=== PATIENT | male | born 1965 | race Caucasian/White ===

== ENCOUNTER → 2016-12-24 | Outpatient (CLI) | payer OTHER | LOC: LAB.O 10:27 | PROVIDERS: ATTEND Psychiatry & Neurology Psychiatry | DX: Z51.81 Encounter for therapeutic drug level monitoring (principal) ==

== ENCOUNTER → 2017-01-14 | Outpatient (CLI) | payer OTHER | END | disposition home or self-care (01) | LOC: LAB.O 12:22 | PROVIDERS: ATTEND Nurse Practitioner Family | DX: K59.00 Constipation, unspecified (principal); K74.60 Unspecified cirrhosis of liver; I50.9 Heart failure, unspecified; E72.20 Disorder of urea cycle metabolism, unspecified; R39.15 Urgency of urination ==

== ENCOUNTER → 2017-05-16 | Outpatient (CLI) | payer MEDICARE ==
--- NOTE | 2017-05-18 12:02 | RAD ---
EXAM DESCRIPTION: Shoulder,Left 2 or More Views CLINICAL HISTORY: 51 years, Male, LEFT SHOULDER PAIN COMPARISON: None. FINDINGS: No fracture or dislocation. Mild acromioclavicular degenerative change IMPRESSION: No fracture or dislocation. Mild degenerative change Electronically signed by: Luis Enrique Lujan MD 05/18/2017 12:00 PM CDT
== END | disposition home or self-care (01) ==
LOC: RAD 12:16
PROVIDERS: ATTEND Nurse Practitioner Family
DX: M25.512 Pain in left shoulder (principal)

== ENCOUNTER → 2017-05-19 | Outpatient (CLI) | payer MEDICARE | END | disposition home or self-care (01) | LOC: YCFC.O 13:02 | PROVIDERS: ATTEND Nurse Practitioner Family | DX: R31.9 Hematuria, unspecified (principal); K62.9 Disease of anus and rectum, unspecified; R10.9 Unspecified abdominal pain ==

== ENCOUNTER → 2017-09-15 | Outpatient (CLI) | payer MEDICARE | END | disposition home or self-care (01) | LOC: YCFC.O 08:56 | PROVIDERS: ATTEND Anesthesiology Pain Medicine | DX: Z79.891 Long term (current) use of opiate analgesic (principal) ==

== ENCOUNTER 2017-09-19 19:53 | Emergency (ER) | payer MEDICARE ==
--- NOTE | 2017-09-19 20:11 | ED.PDOC ---
History of Present Illness - General Chief Complaint: General Stated Complaint: left arm pain Time Seen by Provider: 09/19/17 20:07 Source: patient - History of Present Illness Initial Comments: Riki Whittington 51 y/o male stated that he had been having dull pain on his left arm for the last one month after he fell on his left arm and seen his md took an x -ray on his left arm no fracture noted and was advised to do stretching exercises which he is still doing stating no improvement. Occurred: other - one month Pain - Upper Extremity: moderate: Upper arm, left Method of Injury: fell - one month ago Improving Factors: rest Worsening Factors: movement Allergies/Adverse Reactions: Allergies Penicillin G Allergy (Verified 08/19/16 18:16) Anaphylaxis mushrooms Allergy (Severe, Uncoded 08/19/16 18:16) Anaphylaxis Home Medications: Ambulatory Orders Furosemide [Lasix] 20 mg PO DAILY 01/11/15 Hydroxyzine Pamoate [Vistaril] 100 mg PO BID PRN 01/11/15 Lisinopril & Hydrochlorothiazi [Lisinopril/Hctz 10-12.5 mg] 1 tab PO DAILY 01/11 Potassium Chloride Tab [Micro-K] 10 meq PO DAILY 01/11/15 Pravastatin Sodium 40 mg PO BEDTIME 01/11/15 Baclofen 40 mg PO BID 06/14/16 Pregabalin [Lyrica] 200 mg PO BID 06/14/16 Spironolactone 25 mg PO DAILY 06/29/16 Acetaminophen W/ Codeine [Tylenol w/Codeine 300-30 mg] 1 - 2 tab PO Q6HR PRN # 30 tab 08/19/16 Lactulose 10 gm PO DAILY 08/19/16 Acetaminophen W/ Codeine [Tylenol W/ CODEINE #3] 1 ea PO Q6H PRN #20 11/04/16 Methocarbamol 500 mg PO QID PRN #84 tab 11/04/16 Naproxen [Naprosyn] 500 mg PO BID PRN #30 tab 11/04/16 Carbamazepine [Tegretol-Xr] 400 mg PO DAILY 11/09/16 Furosemide Tab [Lasix Tab] 40 mg PO DAILY PRN #10 tab 11/09/16 Review of Systems - Review of Systems Constitutional: States: no symptoms reported EENTM: States: no symptoms reported Respiratory: States: no symptoms reported Cardiology: States: no symptoms reported Musculoskeletal: States: see HPI Past Medical History (General) - Patient Medical History Hx Seizures: Yes Hx Stroke: Yes - HX TIA Hx Dementia: No Hx Asthma: No Hx of COPD: Yes Hx Cardiac Disorders: Yes - [place] Hx Congestive Heart Failure: No Hx Pacemaker: No Hx Hypertension: Yes Hx Thyroid Disease: No Hx Diabetes: Yes Hx Gastroesophageal Reflux: No Hx Renal Disease: No Hx Cancer: No Hx Hepatitis C: No Hx MRSA: Yes Hx Other PMH: Yes - cerebral palsy MRSA Source:: Wound Surgical History: no surgical history - Vaccination History Hx Tetanus, Diphtheria Vaccination: No Hx Influenza Vaccination: No Hx Pneumococcal Vaccination: No - Social History Hx Tobacco Use: Yes Hx Chewing Tobacco Use: Yes Hx Alcohol Use: Yes Hx Substance Use: No Hx Substance Use Treatment: No Hx Depression: Yes Hx Physical Abuse: No Hx Emotional Abuse: No Family Medical History - Family History Father Family History: Unknown Living Status: Unknown Physical Exam - Physical Exam General Appearance: Alert, No apparent distress Eyes, Ears, Nose, Throat Exam: normal ENT inspection, pharynx normal Neck: non-tender, supple Cardiovascular/Respiratory: regular rate, rhythm, no M/R/G, normal peripheral pulses, normal breath sounds Abdominal Exam: non-tender, no organomegaly Back Exam: no vertebral tenderness Shoulder Exam: non-tender, limited ROM - on flexion and rotations Elbow/Forearm Exam: no evidence of injury Wrist Exam: no evidence of injury Hand Exam: no evidence of injury Neuro/Tendon: normal sensation, normal motor functions Mental Status: alert, oriented x 3 Skin Exam: normal color, warm/dry, other - old ecchymosis left arm Progress - EKG/XRAY/CT EKG: Sinus Comments: heart rate-88 Departure - Departure Clinical Impression: Chronic left shoulder pain Rotator cuff disorder Qualifiers: Laterality: left Qualified Code(s): M67.912 - Unspecified disorder of synovium and tendon, left shoulder Time of Disposition: 21:31 Disposition: Discharge to Home or Self Care Condition: Good Departure Forms: ED Discharge - Pt. Copy, Patient Portal Self Enrollment Instructions: Shoulder Tendinopathy, DI for Rotator Cuff Injury, Rotator Cuff Injury Referrals: Stephanie Perry NP [Primary Care Provider] - 1-2 Weeks Home Medications: Ambulatory Orders Furosemide [Lasix] 20 mg PO DAILY 01/11/15 Hydroxyzine Pamoate [Vistaril] 100 mg PO BID PRN 01/11/15 Lisinopril & Hydrochlorothiazi [Lisinopril/Hctz 10-12.5 mg] 1 tab PO DAILY 01/11 Potassium Chloride Tab [Micro-K] 10 meq PO DAILY 01/11/15 Pravastatin Sodium 40 mg PO BEDTIME 01/11/15 Baclofen 40 mg PO BID 06/14/16 Pregabalin [Lyrica] 200 mg PO BID 06/14/16 Spironolactone 25 mg PO DAILY 06/29/16 Acetaminophen W/ Codeine [Tylenol w/Codeine 300-30 mg] 1 - 2 tab PO Q6HR PRN # 30 tab 08/19/16 Lactulose 10 gm PO DAILY 08/19/16 Acetaminophen W/ Codeine [Tylenol W/ CODEINE #3] 1 ea PO Q6H PRN #20 11/04/16 Methocarbamol 500 mg PO QID PRN #84 tab 11/04/16 Naproxen [Naprosyn] 500 mg PO BID PRN #30 tab 11/04/16 Carbamazepine [Tegretol-Xr] 400 mg PO DAILY 11/09/16 Furosemide Tab [Lasix Tab] 40 mg PO DAILY PRN #10 tab 11/09/16 Additional Instructions: Continue with current medications and shoulder exercises;Follow up with primary md for referral to orthopedist
[2017-09-19 20:33] VITALS: TEMP 98.3; O2SAT 96
[2017-09-19 21:40] VITALS: BP 124/86
== END 2017-09-19 21:40 | disposition home or self-care (01) ==
LOC: ER 19:53
DX: M67.912 Unspecified disorder of synovium and tendon, left shoulder (principal); I25.2 Old myocardial infarction; J44.9 Chronic obstructive pulmonary disease, unspecified; I10 Essential (primary) hypertension; E11.9 Type 2 diabetes mellitus without complications; G80.9 Cerebral palsy, unspecified; Z79.899 Other long term (current) drug therapy; Z88.0 Allergy status to penicillin; Z87.891 Personal history of nicotine dependence

== ENCOUNTER 2017-11-14 19:35 | Emergency (ER) | payer MEDICARE ==
--- NOTE | 2017-11-14 20:47 | ED.PDOC ---
History of Present Illness - General Chief Complaint: Neuro Symptoms/Deficits Stated Complaint: Fall from passing out Time Seen by Provider: 11/14/17 20:08 Source: family Exam Limitations: clinical condition - History of Present Illness Initial Comments: HE IS BROUGHT TO THE ED WITH AMS. FOUND ON THE FLOOR UNKNOWN TIME. THE PATIENT IS CONFUSED BUT RESPONDS TO VERBAL STIMULI Timing/Duration: unsure Severity: moderate Improving Factors: nothing Worsening Factors: nothing Associated Symptoms: denies symptoms Allergies/Adverse Reactions: Allergies Penicillin G Allergy (Verified 11/14/17 19:50) Anaphylaxis mushrooms Allergy (Severe, Uncoded 08/19/16 18:16) Anaphylaxis Home Medications: Ambulatory Orders Furosemide [Lasix] 20 mg PO DAILY 01/11/15 Hydroxyzine Pamoate [Vistaril] 100 mg PO BID PRN 01/11/15 Lisinopril & Hydrochlorothiazi [Lisinopril/Hctz 10-12.5 mg] 1 tab PO DAILY 01/11 Potassium Chloride Tab [Micro-K] 10 meq PO DAILY 01/11/15 Pravastatin Sodium 40 mg PO BEDTIME 01/11/15 Baclofen 40 mg PO BID 06/14/16 Pregabalin [Lyrica] 200 mg PO BID 06/14/16 Spironolactone 25 mg PO DAILY 06/29/16 Acetaminophen W/ Codeine [Tylenol w/Codeine 300-30 mg] 1 - 2 tab PO Q6HR PRN # 30 tab 08/19/16 Lactulose 10 gm PO DAILY 08/19/16 Acetaminophen W/ Codeine [Tylenol W/ CODEINE #3] 1 ea PO Q6H PRN #20 11/04/16 Methocarbamol 500 mg PO QID PRN #84 tab 11/04/16 Naproxen [Naprosyn] 500 mg PO BID PRN #30 tab 11/04/16 Carbamazepine [Tegretol-Xr] 400 mg PO DAILY 11/09/16 Furosemide Tab [Lasix Tab] 40 mg PO DAILY PRN #10 tab 11/09/16 Lisinopril & Hydrochlorothiazi [Zestoretic 20-25 mg] 1 tab PO 11/14/17 [place] Carbonate 300 mg PO BID 11/14/17 Propranolol HCl 10 mg PO DAILY 11/14/17 Review of Systems - Review of Systems Constitutional: States: no symptoms reported EENTM: States: no symptoms reported Respiratory: States: no symptoms reported Cardiology: States: no symptoms reported Gastrointestinal/Abdominal: States: no symptoms reported Genitourinary: States: no symptoms reported Musculoskeletal: States: no symptoms reported Skin: States: no symptoms reported Neurological: States: depressed Endocrine: States: no symptoms reported Hematologic/Lymphatic: States: no symptoms reported All other Systems: Reviewed and Negative Past Medical History (General) - Patient Medical History Hx Seizures: No Hx Stroke: No Hx Dementia: No Hx Asthma: No Hx of COPD: No Hx Cardiac Disorders: No Hx Congestive Heart Failure: No Hx Pacemaker: No Hx Hypertension: Yes Hx Thyroid Disease: No Hx Diabetes: Yes Hx Gastroesophageal Reflux: No Hx Renal Disease: No Hx Cancer: No Hx of HIV: No Hx Hepatitis C: No Hx MRSA: No MRSA Source:: Wound Surgical History: other - Vaccination History Hx Tetanus, Diphtheria Vaccination: No Hx Influenza Vaccination: No Hx Pneumococcal Vaccination: No - Social History Hx Tobacco Use: Yes Hx Chewing Tobacco Use: Yes Hx Alcohol Use: No Hx Substance Use: No Hx Substance Use Treatment: No Hx Depression: No Hx Physical Abuse: No Hx Emotional Abuse: No - Triage Comment ED Triage Comment: Presents to [facility] via [facility] home--states woke up and fell to floor and could not get up and called 911. AMS noted--FSBS 103-- VS WNL--Pt is slow to answer questions from staff-- Pupils 2mm bilat and responds to light.-- Comes with NS KVO to Lt AC per EMS PLANT OPERATIONS COORDINATOR to ER with healthy site noted. Abrasion to forehead noted and dry blood noted to mouth and nose. Family Medical History - Family History Father Family History: Unknown Living Status: Unknown Physical Exam - Physical Exam General Appearance: Anxious, Lethargic, Obese Eye Exam: right abnormal pupil - [place] Ears, Nose, Throat: hearing grossly normal Neck: non-tender, full range of motion, normal inspection Respiratory: lungs clear, normal breath sounds, no respiratory distress, no accessory muscle use Cardiovascular/Chest: normal peripheral pulses, regular rate, rhythm, no edema, no gallop, no JVD, no murmur Peripheral Pulses: radial,right: 2+, radial,left: 2+ Gastrointestinal/Abdominal: normal bowel sounds, non tender, soft, no organomegaly, no pulsatile mass Rectal Exam: deferred Extremity: normal range of motion, non-tender, normal inspection, no pedal edema Neurologic: depressed affect Skin Exam: normal color Lymphatic: no adenopathy Progress - Results/Orders Results/Orders: THE LABORATORY AND IMAGING IS REPORTED: CBC WITH AN ELEVATED WBC OF 19,000 WITH A SHIFT. THE CREATININE OS 1.9, ABG'S WITH A PO2 OF 71 MM/HG AT ROOM AIR. THE UA IS CLEAR. LACTATE IS 1.2, CXR IS REPORTED HAVING A LUCENCY ON THE LEFT HILAR REGION, CT BRAIN IS NEGATIVE FOR ACUTE PROCESS. I HAVE SPOKEN TO DR. MATHIS FROM [facility] AND HE WILL ACCEPT THE PATIENT. - EKG/XRAY/CT CT Ordered: Yes Departure - Departure Clinical Impression: Altered mental status Qualifiers: Altered mental status type: somnolence Qualified Code(s): R40.0 - Somnolence Time of Disposition: 22:33 Disposition: Transfer to Hospital Condition: Fair Departure Forms: ED Discharge - Pt. Copy, Patient Portal Self Enrollment Referrals: Stephanie Perry, [employer] RENT[employer] SERVICE ATTENDANT [Primary Care Provider] - 1-2 Weeks Home Medications: Ambulatory Orders Furosemide [Lasix] 20 mg PO DAILY 01/11/15 Hydroxyzine Pamoate [Vistaril] 100 mg PO BID PRN 01/11/15 Lisinopril & Hydrochlorothiazi [Lisinopril/Hctz 10-12.5 mg] 1 tab PO DAILY 01/11 Potassium Chloride Tab [Micro-K] 10 meq PO DAILY 01/11/15 Pravastatin Sodium 40 mg PO BEDTIME 01/11/15 Baclofen 40 mg PO BID 06/14/16 Pregabalin [Lyrica] 200 mg PO BID 06/14/16 Spironolactone 25 mg PO DAILY 06/29/16 Acetaminophen W/ Codeine [Tylenol w/Codeine 300-30 mg] 1 - 2 tab PO Q6HR PRN # 30 tab 08/19/16 Lactulose 10 gm PO DAILY 08/19/16 Acetaminophen W/ Codeine [Tylenol W/ CODEINE #3] 1 ea PO Q6H PRN #20 11/04/16 Methocarbamol 500 mg PO QID PRN #84 tab 11/04/16 Naproxen [Naprosyn] 500 mg PO BID PRN #30 tab 11/04/16 Carbamazepine [Tegretol-Xr] 400 mg PO DAILY 11/09/16 Furosemide Tab [Lasix Tab] 40 mg PO DAILY PRN #10 tab 11/09/16 Lisinopril & Hydrochlorothiazi [Zestoretic 20-25 mg] 1 tab PO 11/14/17 [place] Carbonate 300 mg PO BID 11/14/17 Propranolol HCl 10 mg PO DAILY 11/14/17 Transfer to Outside Facility - Transfer Information Accepting Facility: [facility] Reason for Transfer: HIGHER LEVEL OF CARE
--- NOTE | 2017-11-14 20:47 | CT ---
EXAM DATE: 11/14/2017 7:49 PM [facility]. PROCEDURE: CT HEAD WITHOUT IV CONTRAST. INDICATION: altered mental status. COMPARISON: 06/18/2016. TECHNIQUE: Axial CT images of the head were acquired without intravenous contrast. This exam was performed according to our departmental dose-optimization program which includes use of Automated Exposure Control, adjustment of the mA and/or kV according to patient size and/or use of iterative reconstruction technique. FINDINGS: No acute intracranial hemorrhage. Gran[place] white matter differentiation is preserved. No mass effect or midline shift. No hydrocephalus. Unremarkable orbits. Moderate mucosal thickening scattered throughout the paranasal sinuses. Mastoid air cells are clear. Intact calvarium. IMPRESSION: No acute intracranial abnormality. Paranasal sinus disease. Electronically signed by: Damon Jacobsen MD 11/14/2017 8:46 PM [facility]
--- NOTE | 2017-11-14 21:28 | RAD ---
Examination: XR CHEST 1 VIEW dated 11/14/2017 8:40 PM [employer] History: sob Comparison: 11/09/2026 Technique: Frontal view of the chest Findings: Exam is mildly hypoventilatory. The lungs are clear bilaterally. No pneumothorax or pleural effusion. There is an oval lucency in the region of the left hilum. The cardiac silhouette is unremarkable. Impression: Oval lucency in the region of the left hilum of unclear etiology. Consider lateral chest radiograph for further evaluation. Lungs otherwise clear. Electronically signed by: Damon Jacobsen MD 11/14/2017 9:26 PM [employer]
[2017-11-14 22:46] VITALS: BP 130/59; O2SAT 99
[2017-11-14 23:00] VITALS: TEMP 98.3
== END 2017-11-14 23:00 | disposition short-term general hospital (02) ==
LOC: ER 19:35
DX: R41.82 Altered mental status, unspecified (principal); R40.0 Somnolence; E11.9 Type 2 diabetes mellitus without complications; I10 Essential (primary) hypertension; Z72.0 Tobacco use; Z79.899 Other long term (current) drug therapy; Z88.0 Allergy status to penicillin

== ENCOUNTER → 2018-01-06 | Outpatient (CLI) | payer MEDICARE | LOC: YCFC.O 10:43 | DX: E78.5 Hyperlipidemia, unspecified (principal); I10 Essential (primary) hypertension; K74.60 Unspecified cirrhosis of liver ==

== ENCOUNTER → 2018-02-06 | Outpatient (CLI) | payer MEDICARE | LOC: GRHH 15:37 | DX: E11.65 Type 2 diabetes mellitus with hyperglycemia (principal); I10 Essential (primary) hypertension ==

== ENCOUNTER → 2018-02-18 | Outpatient (CLI) | payer MEDICARE | LOC: GRHH 09:52 | DX: E55.9 Vitamin D deficiency, unspecified (principal); D51.9 Vitamin B12 deficiency anemia, unspecified; I10 Essential (primary) hypertension; D52.9 Folate deficiency anemia, unspecified; Z51.81 Encounter for therapeutic drug level monitoring; Z79.899 Other long term (current) drug therapy; Z13.29 Encounter for screening for other suspected endocrine disorder ==

== ENCOUNTER → 2018-11-03 | Outpatient (CLI) | payer MEDICARE | LOC: YCFC.O 12:36 | PROVIDERS: ATTEND Family Medicine | DX: E11.9 Type 2 diabetes mellitus without complications (principal); I10 Essential (primary) hypertension; K74.60 Unspecified cirrhosis of liver; E78.5 Hyperlipidemia, unspecified; R35.1 Nocturia ==

== ENCOUNTER → 2019-02-04 | Outpatient (CLI) | payer MEDICARE | LOC: NC 12:57 | PROVIDERS: ATTEND Family Medicine | DX: E11.9 Type 2 diabetes mellitus without complications (principal); I11.0 Hypertensive heart disease with heart failure; I50.9 Heart failure, unspecified ==

== ENCOUNTER → 2019-02-09 | Outpatient (CLI) | payer MEDICARE | LOC: LAB.O 09:33 | PROVIDERS: ATTEND Family Medicine | DX: R74.8 Abnormal levels of other serum enzymes (principal) ==

== ENCOUNTER → 2019-04-28 | Outpatient (CLI) | payer MEDICARE | LOC: NC 11:13 | PROVIDERS: ATTEND Family Medicine | DX: E11.9 Type 2 diabetes mellitus without complications (principal); I11.0 Hypertensive heart disease with heart failure ==

== ENCOUNTER → 2019-05-10 | Outpatient (CLI) | payer MEDICARE | LOC: LAB.O 08:53 | PROVIDERS: ATTEND Family Medicine | DX: E78.5 Hyperlipidemia, unspecified (principal); D64.9 Anemia, unspecified; D51.9 Vitamin B12 deficiency anemia, unspecified; D52.9 Folate deficiency anemia, unspecified ==

== ENCOUNTER → 2019-06-02 | Outpatient (CLI) | payer MEDICARE | LOC: LAB.O 10:44 | PROVIDERS: ATTEND Internal Medicine Gastroenterology | DX: R74.0 Nonspecific elevation of levels of transaminase and lactic acid dehydrogenase [LDH] (principal); K74.0 Hepatic fibrosis; R74.8 Abnormal levels of other serum enzymes; R94.5 Abnormal results of liver function studies; F10.10 Alcohol abuse, uncomplicated; Z72.89 Other problems related to lifestyle ==

== ENCOUNTER 2019-07-03 09:56 | Emergency (ER) | payer MEDICARE ==
[2019-07-03 10:09] VITALS: TEMP 97.5
[2019-07-03] MEDS ORDERED: LIDOCAINE 1% 10 ML VIAL INJ ONE (10:14)
[2019-07-03] MEDS ORDERED: CHLORHEXIDINE GLUCONATE 4 % 15 ML UD TOP ONE (10:15)
[2019-07-03] MEDS ORDERED: CEPHALEXIN MONOHYDRATE 250 MG CAP PO ONE (10:40)
--- NOTE | 2019-07-03 10:43 | ED.PDOC ---
History of Present Illness - General Chief Complaint: Laceration Stated Complaint: laceration to RH Time Seen by Provider: 07/03/19 10:15 Source: patient Exam Limitations: no limitations - History of Present Illness Initial Comments: Patient presents with a laceration to his right hand that he got while using his pocket knife. He says that it slipped and sliced his hand as it was falling. He has NIDDM and says that he had neuropathy in the right hand. He says that he is not feeling any pain because of that. No other injuries nor complaints. Timing/Duration: 1-3 hours Severity: mild Improving Factors: nothing Worsening Factors: nothing Associated Symptoms: denies symptoms Allergies/Adverse Reactions: Allergies Penicillin G Allergy (Verified 11/14/17 19:50) Anaphylaxis mushrooms Allergy (Severe, Uncoded 08/19/16 18:16) Anaphylaxis Home Medications: Ambulatory Orders Pravastatin Sodium 40 mg PO BEDTIME 01/11/15 Propranolol HCl [Propranolol Hydrochloride] 10 mg PO DAILY 11/14/17 Cyanocobalamin [B12] 1,000 mcg PO DAILY 01/24/19 Divalproex Sodium [Divalproex Sodium ER] 1,000 mg PO BID 01/24/19 Duloxetine HCl 30 mg PO DAILY 01/24/19 Lisinopril 20 mg PO DAILY #30 tab 01/24/19 Lisinopril & Hydrochlorothiazi [Lisinopril/Hctz 20-25 mg] 1 tab PO DAILY 01/24/19 Metformin HCl [Metformin Hydrochloride] 1,000 mg PO BID 01/24/19 Potassium Chloride [Potassium Chloride ER] 20 meq PO DAILY 01/24/19 Pregabalin [Lyrica] 75 mg PO BID 01/24/19 Cephalexin Monohydrate [Keflex] 500 mg PO Q12HRS #13 cap 07/03/19 Review of Systems - Review of Systems Constitutional: States: no symptoms reported EENTM: States: no symptoms reported Respiratory: States: no symptoms reported Cardiology: States: no symptoms reported Gastrointestinal/Abdominal: States: no symptoms reported Genitourinary: States: no symptoms reported Musculoskeletal: States: no symptoms reported Skin: States: see HPI Neurological: States: no symptoms reported Endocrine: States: no symptoms reported Hematologic/Lymphatic: States: no symptoms reported Past Medical History (General) - Patient Medical History Hx Seizures: No Hx Stroke: No Hx Dementia: No Hx Asthma: No Hx of COPD: No Hx Cardiac Disorders: No Hx Congestive Heart Failure: No Hx Pacemaker: No Hx Hypertension: Yes Hx Thyroid Disease: No Hx Diabetes: Yes Hx Gastroesophageal Reflux: No Hx Renal Disease: No Hx Cancer: No Hx of HIV: No Hx Hepatitis C: No Hx MRSA: No MRSA Source:: Wound - Vaccination History Hx Tetanus, Diphtheria Vaccination: No Hx Influenza Vaccination: No Hx Pneumococcal Vaccination: No - Social History Hx Tobacco Use: Yes Hx Chewing Tobacco Use: Yes Hx Alcohol Use: No Hx Substance Use: No Hx Substance Use Treatment: No Hx Depression: No Hx Physical Abuse: No Hx Emotional Abuse: No Family Medical History - Family History Father Family History: Unknown Living Status: Unknown Physical Exam - Physical Exam General Appearance: Alert Respiratory: lungs clear, normal breath sounds Cardiovascular/Chest: normal peripheral pulses, regular rate, rhythm Extremity: other - Patient has 5/5 AROM in all fingers of the right hand as well as the wrist. Decreased sensation throughout the entire hand secondary to diabetic neuropathy. Capillary refill less than 2 seconds at right fingernail beds. Neurologic: no motor/sensory deficits Skin Exam: other - 2 cm transverse laceration on the posterolateral right hand just proximal to the MIP joint of the 1st digit. Hemostatic. Progress - Progress Progress: 07/03/19 10:47 Laceration site was prepped and draped in a sterile fashion. 3 cc of lidocaine without epinephrine was injected into the wound site and excellent local anesthesia achieved. Wound irrigated with 60 cc sterile NS. 4 interrupted sutures using 3-0 Proline were used to gain excellent wound edge opposition. Reinforced with Dermabond. Area was clean, dry, and hemostatic upon completion. Patient tolerated procedure well. Patient is at a higher risk for wound infection due to the diabetes and neuropathy so he was given Keflex 500 mg po in the E.D. and RX for 7 days. Care instructions given. E.R. warnings given. Questions were elicited and answered. Patient voiced understanding and agreement with the plan. Departure - Departure Clinical Impression: Laceration Disposition: Discharge to Home or Self Care Condition: Good Departure Forms: ED Discharge - Pt. Copy, Patient Portal Self Enrollment Instructions: DI for Laceration Repair, DI for Laceration Repair -- Simple Diet: resume usual diet Activity: other - no lifting more than 5 pounds with the right hand until the sutures are taken out Referrals: Herman Layne MD [Primary Care Provider] - 1-2 Weeks Prescriptions: Cephalexin Monohydrate [Keflex] 500 mg PO Q12HRS #13 cap Home Medications: Ambulatory Orders Pravastatin Sodium 40 mg PO BEDTIME 01/11/15 Propranolol HCl [Propranolol Hydrochloride] 10 mg PO DAILY 11/14/17 Cyanocobalamin [B12] 1,000 mcg PO DAILY 01/24/19 Divalproex Sodium [Divalproex Sodium ER] 1,000 mg PO BID 01/24/19 Duloxetine HCl 30 mg PO DAILY 01/24/19 Lisinopril 20 mg PO DAILY #30 tab 01/24/19 Lisinopril & Hydrochlorothiazi [Lisinopril/Hctz 20-25 mg] 1 tab PO DAILY 01/24/19 Metformin HCl [Metformin Hydrochloride] 1,000 mg PO BID 01/24/19 Potassium Chloride [Potassium Chloride ER] 20 meq PO DAILY 01/24/19 Pregabalin [Lyrica] 75 mg PO BID 01/24/19 Cephalexin Monohydrate [Keflex] 500 mg PO Q12HRS #13 cap 07/03/19 Additional Instructions: Keep the wound site clean. Apply topical Neosporin to the laceration twice per day until healed. Take the antibiotic medication as prescribed. Return to the E.R. or your regular doctor in 10 days for suture removal. Return to the E.R. for increased redness around the wound, pain, pus, or temperature above 100.3.
[2019-07-03 11:04] VITALS: BP 126/90; O2SAT 96
== END 2019-07-03 11:00 | disposition home or self-care (01) ==
LOC: ER 09:56
DX: S61.411A Laceration without foreign body of right hand, initial encounter (principal); E11.42 Type 2 diabetes mellitus with diabetic polyneuropathy; I10 Essential (primary) hypertension; W26.0XXA Contact with knife, initial encounter; Z88.0 Allergy status to penicillin; Z79.899 Other long term (current) drug therapy; Z79.84 Long term (current) use of oral hypoglycemic drugs; Z87.891 Personal history of nicotine dependence; Y92.9 Unspecified place or not applicable

== ENCOUNTER → 2019-07-15 | Outpatient (CLI) | payer MEDICARE | LOC: YCFC.O 15:51 | PROVIDERS: ATTEND Nurse Practitioner | DX: L08.9 Local infection of the skin and subcutaneous tissue, unspecified (principal) ==

== ENCOUNTER → 2019-07-19 | Outpatient (CLI) | payer MEDICARE | LOC: LAB.O 08:40 | PROVIDERS: ATTEND Family Medicine | DX: I10 Essential (primary) hypertension (principal); E11.9 Type 2 diabetes mellitus without complications; E78.5 Hyperlipidemia, unspecified ==

== ENCOUNTER → 2020-03-08 | Outpatient (CLI) | payer MEDICARE | LOC: YCFC.O 09:23 | PROVIDERS: ATTEND Family Medicine | DX: E11.9 Type 2 diabetes mellitus without complications (principal); Z12.5 Encounter for screening for malignant neoplasm of prostate; M25.569 Pain in unspecified knee; I10 Essential (primary) hypertension; E78.5 Hyperlipidemia, unspecified; R53.83 Other fatigue | CPT/HCPCS: 36415; 80061; 82043; 82570; 83036; 84443; 84550; 85025; 85651; 86039; 86140; 86431; G0103 ==

== ENCOUNTER → 2020-03-23 | Outpatient (CLI) | payer MEDICARE ==
--- NOTE | 2020-03-23 08:13 | RAD ---
EXAM DESCRIPTION: Hand,Left 3 Views CLINICAL HISTORY: 54 years Male, PAIN COMPARISON: None. FINDINGS: 3 views of the left hand show no acute fracture or malalignment. Mild joint space narrowing involving several interphalangeal joints. No bony erosion, soft tissue swelling or radiopaque foreign body or bony demineralization. IMPRESSION: Mild polyarticular degenerative changes. Electronically signed by: Jason Cohen MD 03/23/2020 8:11 AM CDT
--- NOTE | 2020-03-23 08:14 | RAD ---
EXAM DESCRIPTION: Hand,Right 3 Views CLINICAL HISTORY: 54 years Male, PAIN COMPARISON: None. FINDINGS: 3 views of the right hand show no acute fracture or malalignment. Mild joint space narrowing involving several interphalangeal joints without osteophyte formation. No bony erosion or demineralization. The soft tissues are unremarkable. IMPRESSION: Mild polyarticular degenerative changes. Electronically signed by: Jason Cohen MD 03/23/2020 8:12 AM CDT
== END ==
LOC: RAD 07:51
PROVIDERS: ATTEND Orthopaedic Surgery
DX: M13.0 Polyarthritis, unspecified (principal)

== ENCOUNTER 2020-03-29 05:51 | Day surgery (SDC) | payer MEDICARE ==
[2020-03-29] MEDS ORDERED: LACTATED RINGERS 1,000 ML ONE (06:00)
[2020-03-29] MEDS ORDERED: ceFAZolin SODIUM 1 GM VIAL ONE ×2 (06:00→06:58)
[2020-03-29] MEDS ORDERED: SODIUM CHL 0.9% 100ML MINI-BAG 100 ML IVPB ONE (06:01)
[2020-03-29] MEDS ORDERED: BUPIVACAINE 0.25% INJ 30 ML VIAL INJ ONE ×3 (06:58→07:34)
[2020-03-29] MEDS ORDERED: VANCOMYCIN HCL INJ 1,000 MG VIAL IVPB ONE ×3 (06:59→07:34)
[2020-03-29] MEDS ORDERED: LIDOCAINE 1% 10 ML VIAL INJ ONE ×5 (06:59→07:34)
[2020-03-29] MEDS ORDERED: PROPOFOL 200 MG/20 ML VIAL IV ONE (07:00)
[2020-03-29] MEDS ORDERED: ceFAZolin SODIUM 1 GM VIAL IRRIG ONE ×2 (07:06→07:34)
[2020-03-29] MEDS ORDERED: MIDAZOLAM INJ 2 MG/2 ML VIAL ONE (07:22)
[2020-03-29 08:56] VITALS: BP 116/82; TEMP 97.6; O2SAT 100
--- NOTE | 2020-03-29 09:50 | OP ---
DATE OF PROCEDURE: 03/29/20 PREOPERATIVE DIAGNOSIS: 1. Left carpal tunnel syndrome. POSTOPERATIVE DIAGNOSIS: 1. Left carpal tunnel syndrome. PROCEDURE: 1. Left carpal tunnel release. SURGEON: Oz Hciks MD. E BUSINESS SPECIALIST: Freddy Flores CST, SA-C. ANESTHESIA: Local with sedation. COMPLICATIONS: None. FINDINGS: Thickening of the transverse carpal ligament. INDICATION: Mr. Whittington has a history of symptoms consistent with carpal tunnel syndrome. He has this going on for years and requested operative intervention. After discussing the risks, benefits and alternatives to that, the patient has given informed consent for carpal tunnel release. PROCEDURE: The patient was brought to the Operating Room and placed in the supine position. Sedation was administered and local anesthetic was injected into the operative area under sterile conditions. After the injection of anesthetic, the arm was sterilely prepped and draped. A longitudinal incision was made directly overlying the transverse carpal ligament and blunt dissection was carried down to the ligament. The transverse carpal ligament was sharply transected along its length and a Aroda elevator was used to ensure complete release of the ligament. Once release had been confirmed, the wound was thoroughly irrigated and the wound was closed with Nylon suture. A sterile dressing was placed and the patient was taken to the Day Surgery Unit. POSTOPERATIVE PLAN: The patient has been encouraged to do range of motion of the digits and will followup with us in two days. #[id number] MTDD
== END 2020-03-29 09:05 | disposition home or self-care (01) ==
LOC: AMB 05:51
PROVIDERS: ATTEND Orthopaedic Surgery
DX: G56.02 Carpal tunnel syndrome, left upper limb (principal); I10 Essential (primary) hypertension; K21.9 Gastro-esophageal reflux disease without esophagitis; E11.9 Type 2 diabetes mellitus without complications; K76.0 Fatty (change of) liver, not elsewhere classified; F41.9 Anxiety disorder, unspecified; F32.9 Major depressive disorder, single episode, unspecified; Z79.899 Other long term (current) drug therapy
CPT/HCPCS: 01810; 36416; 64721; 80307; 82948; 87070; J0690; J2250; J3370; J3490; J7050; J7120

== ENCOUNTER → 2020-10-25 | Outpatient (CLI) | payer MEDICARE | LOC: LAB.NP 13:19 | PROVIDERS: ATTEND Family Medicine | DX: E10.65 Type 1 diabetes mellitus with hyperglycemia (principal) ==